=== PATIENT | female | born 1990 | race Caucasian/White ===

== ENCOUNTER 2020-09-24 15:15 | Emergency (ER) | payer SELFPAY ==
[2020-09-24 16:44] LABS: #Basophils 0.1 thou/uL (0.0-0.2); #Eosinphils 0.3 thou/uL (0.0-0.7); #Lymphocytes 2.3 thou/uL (1.20-3.40); #Monocytes 0.7 thou/uL (0.11-0.59); #Neutrophils 8.5 thou/uL (1.40-6.50); %Basophils 0.7 % (0.0-1.0); %Eosinophils 2.4 % (0.0-10.0); %Lymphocytes 19.6 % (21.0-51.0); %Monocytes 5.6 % (0.0-10.0); %Neutrophils 71.8 % (42.0-75.0); ALT (SGPT) 31 U/L (8-55); AST (SGOT) 32 U/L (5-34); Albumin 3.3 g/dL (3.5-5.0); Alkaline Phosphatase 68 U/L (40-110); Anion Gap 11 mmol/L (10-20); BUN (Urea Nitrogen) 9 mg/dL (7.0-18.7); Bilirubin, Total 0.5 mg/dL (0.2-1.2); Calc. Creatinine Clearance 0 mL/min (70-130); Calcium 8.2 mg/dL (7.8-10.44); Carbon Dioxide 31 mmol/L (22-29); Chloride 100 mmol/L (98-107); Estimated GFR-MDRD 89; Globulin 4.1 g/dL (2.4-3.5); Glucose 134 mg/dL (70-105); Hemoglobin 7.6 g/dL (12.0-16.0); Mean Corpuscular HGB CONC 27.8 g/dL (32.0-36.0); Mean Corpuscular Hemoglobin 17.9 pg (27.0-31.0); Mean Corpuscular Volume 64.3 fL (78.0-98.0); Mean Platelet Volume 6.1 fL (7.4-10.4); Platelet Count 338 thou/uL (130-400); Potassium 4.1 mmol/L (3.5-5.1); Protein, Total 7.4 g/dL (6.0-8.3); RBC Distribution Width 18.1 % (11.5-14.5); Red Blood Cell (RBC) Count 4.26 mill/uL (4.20-5.40); Sodium 138 mmol/L (136-145); White Blood Cell (WBC) Count 11.9 thou/uL (4.8-10.8)
[2020-09-24 16:55] LABS: Anisocytosis MODERATE=16-30 cells (100X) (0-5/hpf); Hypochromia MODERATE=16-30 cells (100X) (0-5/hpf); MDiff Complete? YES; Microcytosis MODERATE=15-30 cells (100X) (0-5/hpf); Platelet Morphology Comment Appears Adequate; Reflex for Review?? NO
[2020-09-24] MEDS ORDERED: Sodium Chloride 0.9% 100 ML ONE (17:03)
[2020-09-24] MEDS ORDERED: Cefepime 2 GM VIAL ONE (17:03)
[2020-09-24] MEDS ORDERED: Sodium Chloride 0.9% 500 ML ONE (17:46)
[2020-09-24] MEDS ORDERED: Sodium Chloride 0.9% 1,000 ML ONE (20:09)
[2020-09-24] MEDS ORDERED: Ketorolac Tromethamine 30 MG/ML VIAL ONE (20:09)
== END 2020-09-24 21:54 | disposition short-term general hospital (02) ==
LOC: NAV ERS 15:15
DX: L03.311 Cellulitis of abdominal wall (principal); N76.2 Acute vulvitis; L03.315 Cellulitis of perineum; E66.01 Morbid (severe) obesity due to excess calories
CPT/HCPCS: 36415; 80053; 83605; 85025; 87040; 96365; 96366; 96367; 96375; J0692; J1885; J3370; J3490; J7030; J7050